=== PATIENT | male | born 1965 | race Caucasian/White ===

== ENCOUNTER 2019-05-07 18:37 | Inpatient (IN) ==
[2019-05-07] MEDS ORDERED: ASPIRIN 325 MG TABLET PO STA (19:01)
[2019-05-07 19:34] LABS: Apearance,Urine CLEAR (Clear); Bilirubin,Urine Negative (Negative); Blood, Urine Negative (Negative); Glucose,Urine (UA) Negative (Negative); Hyaline Casts,Urine 3 /LPF (0-3); Ketones,Urine Negative (Negative); Mucus,Urine Occasional /LPF (Occasional); Nitrite,Urine Negative (Negative); Protein,Urine Negative; RBC,Urine 1 /HPF (0-4); Urine Color Yellow (Yellow); Urine Specific Gravity 1.017 (1.001-1.035); Urine Urobilinogen < 2.0 EU/DL (0.2-1.0); WBC,Urine <1 /HPF (0-6)
[2019-05-07 19:48] LABS: PT Patient Result 32.6 SECS
[2019-05-07 19:50] LABS: CKMB % 7.9 %
[2019-05-07 19:54] LABS: Troponin I 9.35 NG/ML (0.00-0.045)
[2019-05-07] MEDS ORDERED: ONDANSETRON 4 MG/2 ML VIAL IV PRN (19:57)
[2019-05-07] MEDS ORDERED: MORPHINE 4 MG/1 ML VIAL IV PRN (19:57)
[2019-05-07] MEDS ORDERED: ALBUTEROL/IPRATROPIUM 3 ML NEB RESP TX PRN (19:57)
[2019-05-07] MEDS ORDERED: MAGNESIUM SULF RIDER 4 GM in PREMIX 1 EACH IV PRN (19:57)
[2019-05-07] MEDS ORDERED: POTASSIUM CHLORIDE 20 MEQ TABLET PO PRN (19:57)
[2019-05-07] MEDS ORDERED: MAGNESIUM SULF RIDER 2 GM in PREMIX 1 EACH IV PRN (19:57)
[2019-05-07] MEDS ORDERED: ENOXAPARIN 100 MG/ML SYRINGE SUBCUT SCH (20:00)
[2019-05-07 20:20] LABS: Barbiturates Screen,Urine Negative (Negative); Benzodiazepines Screen,Urine Negative (Negative); Cannabinoid Screen,Urine Negative (Negative); Opiate Screen,Urine Positive (Negative); Phencyclidine Screen,Urine Negative (Negative)
[2019-05-07] MEDS ORDERED: ASPIRIN 325 MG TABLET ONE (20:44)
[2019-05-07] MEDS: SODIUM CHLORIDE 0.9% 1,000 ML IV SCH (20:52)
[2019-05-07] MEDS ORDERED: METOPROLOL TARTRATE 25 MG TABLET PO SCH (21:00)
[2019-05-07] MEDS: ASCORBIC ACID 500 MG TABLET PO SCH (23:58)
[2019-05-07] MEDS: NITROGLYCERIN 2% OINT 1 INCH/GM PACK TOP SCH (23:59)
[2019-05-08 01:52] LABS: Basophils # 0.1 10*3/uL (0.0-0.2); Eosinophils # 0.6 10*3/uL (0.0-0.87); Eosinophils % 5.5 % (0.00-10.9); Hematocrit 44.8 VOL% (42.0-52.0); Hemoglobin 13.9 GM/DL (14.0-18.0); Immature Granulocytes % 0.8 %; Immature Granulocytes Absolute 0.08 #; Lymphocytes # 3.1 10*3/uL (1.4-4.0); Lymphocytes % 28.7 % (21.2-54.2); Mean Corpuscular Volume 83.6 FL (87-102); Mean Platelet Volume 9.8 FL (9.6-12.0); Monocytes % 9.6 % (1.7-12.7); Neutrophils % 54.4 % (38.7-73.9); Platelet Count 288 T/CUMM (130-400); Red Blood Count 5.36 MC/CUMM (3.8-5.5); Red Cell Distribution Width 13.4 % (9.3-17.3); White Blood Count 10.6 T/CUMM (4-12)
[2019-05-08 02:39] LABS: Albumin 3.2 G/DL (3.4-5.0); Bilirubin,Total 0.4 MG/DL (0.2-1.0); Calcium 8.1 MG/DL (8.5-10.1); Osmolality,Calculated 287.3 MOS/KG (273-304); Risk Ratio 2.82; Thyroid Stimulating Hormone 1.32 uIU/ml (0.358-3.74); Total Protein 6.7 G/DL (6.4-8.3)
[2019-05-08 04:26] LABS: CKMB % 7.4 %
[2019-05-08 04:45] LABS: Troponin I 8.91 NG/ML (0.00-0.045)
[2019-05-08] MEDS: NITROGLYCERIN 2% OINT 1 INCH/GM PACK TOP SCH ×2 (06:42→12:39)
[2019-05-08] MEDS ORDERED: ASPIRIN EC 325 MG TABLET PO SCH (09:00)
[2019-05-08] MEDS ORDERED: ALPRAZolam 0.5 MG TABLET PO SCH (09:00)
[2019-05-08] MEDS: PANTOPRAZOLE 40 MG TABLET PO SCH (09:28)
[2019-05-08] MEDS: ASCORBIC ACID 500 MG TABLET PO SCH ×2 (09:28→20:13)
[2019-05-08] MEDS: ATORVASTATIN 40 MG TABLET PO SCH (09:28)
[2019-05-08] MEDS: METOPROLOL SUCCINATE XL 100 MG TABLET PO SCH (09:28)
[2019-05-08] MEDS: GABAPENTIN 600 MG TABLET PO SCH ×2 (09:28→20:13)
[2019-05-08 10:22] LABS: INR 3.5
[2019-05-08] MEDS ORDERED: MAGNESIUM SULF RIDER 2 GM in PREMIX 1 EACH IV PRN (10:23)
[2019-05-08] MEDS ORDERED: DIAZEPAM 5 MG TABLET PO ONE (10:23)
[2019-05-08] MEDS ORDERED: diphenhydrAMINE CAP 25 MG CAPSULE PO ONE (10:23)
[2019-05-08] MEDS ORDERED: POTASSIUM CHLORIDE RIDER 10 MEQ in PREMIX 1 EACH IV PRN (10:23)
[2019-05-08 10:29] LABS: PT Patient Result 37.2 SECS
[2019-05-08] MEDS ORDERED: HEPARIN/NACL 0.9% 2 UNITS/ML 1,000 ML IV ONE (10:30)
[2019-05-08] MEDS ORDERED: LIDOCAINE 1% 20 ML VIAL ONE (10:30)
[2019-05-08] MEDS ORDERED: HYDROmorphone 2 MG/1 ML VIAL ONE (11:06)
[2019-05-08] MEDS ORDERED: MIDAZOLAM 2 MG/2 ML VIAL ONE (11:06)
[2019-05-08] MEDS ORDERED: VERAPAMIL 5 MG/2 ML VIAL ONE (11:39)
[2019-05-08] MEDS ORDERED: NITROGLYCERIN DRIP 50 MG/250 ML BOTTLE IV ONE (11:39)
[2019-05-08] MEDS ORDERED: LORazepam 2 MG/1 ML VIAL IV PRN (12:23)
[2019-05-08] MEDS: SODIUM CHLORIDE 0.9% 1,000 ML IV SCH (12:46)
[2019-05-08] MEDS ORDERED: MAGNESIUM HYDROXIDE SUSP 30 ML UDCUP PO PRN (16:32)
[2019-05-08] MEDS ORDERED: diphenhydrAMINE CAP 25 MG CAPSULE PO PRN (16:32)
[2019-05-08] MEDS ORDERED: ENOXAPARIN 30 MG/0.3 ML SYRINGE SUBCUT SCH (20:00)
[2019-05-09 04:20] LABS: Basophils # 0.1 10*3/uL (0.0-0.2); Basophils % 1.1 % (0.0-0.8); Eosinophils # 0.4 10*3/uL (0.0-0.87); Eosinophils % 4.3 % (0.00-10.9); Hemoglobin 13.3 GM/DL (14.0-18.0); Immature Granulocytes % 0.4 %; Immature Granulocytes Absolute 0.03 #; Lymphocytes % 24.5 % (21.2-54.2); Mean Corpuscular HGB Conc 30.9 GM/DL (32-36); Mean Corpuscular Volume 84.3 FL (87-102); Mean Platelet Volume 10.3 FL (9.6-12.0); Monocytes % 12.7 % (1.7-12.7); Platelet Count 264 T/CUMM (130-400); Red Cell Distribution Width 13.2 % (9.3-17.3); White Blood Count 8.2 T/CUMM (4-12)
[2019-05-09 04:31] LABS: INR 2.8
[2019-05-09 04:35] LABS: PT Patient Result 30.1 SECS
[2019-05-09 04:46] LABS: Calcium 8.3 MG/DL (8.5-10.1); Osmolality,Calculated 281.4 MOS/KG (273-304)
[2019-05-09] MEDS: METOPROLOL SUCCINATE XL 100 MG TABLET PO SCH (08:34)
[2019-05-09] MEDS: ATORVASTATIN 40 MG TABLET PO SCH (08:34)
[2019-05-09] MEDS: ASCORBIC ACID 500 MG TABLET PO SCH (08:34)
[2019-05-09] MEDS: GABAPENTIN 600 MG TABLET PO SCH (08:34)
[2019-05-09] MEDS: PANTOPRAZOLE 40 MG TABLET PO SCH (08:35)
[2019-05-09 08:50] VITALS: BP 126/86
[2019-05-09] MEDS ORDERED: LOSARTAN 25 MG TABLET PO SCH ×2 (09:00)
[2019-05-09] MEDS ORDERED: ASPIRIN EC 81 MG TABLET PO SCH (09:00)
== END 2019-05-09 11:45 | disposition home or self-care (01) | DRG 282 ==
LOC: N.ED 18:37 → N.TELEN 19:15 → INTOOBSV 19:15 → OBSVTOIN 19:15 → N.CC 20:04 → N.TELEN 05-08 17:14
PROVIDERS: ADMIT Internal Medicine Cardiovascular Disease; ATTEND Internal Medicine Cardiovascular Disease